=== PATIENT | female | born 1955 | race Caucasian/White ===

== ENCOUNTER → 2017-11-01 | Outpatient (REF) | payer BC ==
[2017-11-01 13:07] LABS: BASO % 0.5 % (0.0-1.0); EOS # 0.2 10^3/uL (0.0-0.50); EOS % 2.9 % (0.0-3.0); HEMATOCRIT 46.4 % (36.0-47.0); HEMOGLOBIN 15.3 g/dl (12.0-16.0); IMMATURE GRANULOCYTE % 0.2 % (0-3.0); LYMPH # 2.4 10^3/uL (1.5-4.5); LYMPH % 38.7 % (24.0-44.0); MEAN CORPUSCULAR HEMOGLOBIN 30.5 pg (27.0-33.0); MEAN CORPUSCULAR VOLUME 92.6 fl (80.0-96.0); MONO # 0.4 10^3/uL (0.0-0.8); MONO % 6.5 % (0.0-5.0); NEUTROPHILS # 3.2 10^3/uL (1.8-7.7); NEUTROPHILS % 51.2 % (36.0-66.0); PLATELET COUNT, AUTOMATED 255 10^3/uL (150-450); RED BLOOD COUNT 5.01 10^6/uL (4.00-5.40); RED CELL DISTRIBUTION WIDTH 13.8 % (11.5-14.5); WHITE BLOOD COUNT 6.2 10^3/uL (4.0-10.0)
[2017-11-01 13:24] LABS: TOTAL 25(OH) VITAMIN D 32.1 NG/ML (30.0-100.0)
[2017-11-01 13:29] LABS: ALBUMIN 4.1 GM/DL (3.2-5.2); ALBUMIN/GLOBULIN RATIO 1.32 (1.00-1.93); ALKALINE PHOSPHATASE 65 U/L (45-117); ALT/SGPT 30 U/L (12-78); ANION GAP 8 MEQ/L (8-16); AST/SGOT 17 U/L (7-37); BILIRUBIN,TOTAL 0.4 MG/DL (0.2-1.0); BLOOD UREA NITROGEN 18 MG/DL (7-18); CALCIUM LEVEL 9.4 MG/DL (8.8-10.2); CARBON DIOXIDE LEVEL 31 MEQ/L (21-32); CHLORIDE LEVEL 103 MEQ/L (98-107); CHOLESTEROL LEVEL 232 MG/DL (<200); CREATININE FOR GFR 0.84 MG/DL (0.55-1.30); FREE T4 0.81 NG/DL (0.76-1.46); GLOMERULAR FILTRATION RATE > 60.0 (>45); GLUCOSE, FASTING 86 MG/DL (70-100); HDL CHOLESTEROL 57 MG/DL (>40); NON-HDL-C 175 MG/DL; POTASSIUM SERUM 3.9 MEQ/L (3.5-5.1); SODIUM LEVEL 142 MEQ/L (136-145); TOTAL PROTEIN 7.2 GM/DL (6.4-8.2); TRIGLYCERIDES LEVEL 235 MG/DL (<150)
== END ==
LOC: M LABDRWAD 12:25
DX: E55.9 Vitamin D deficiency, unspecified (principal); I10 Essential (primary) hypertension
CPT/HCPCS: 84443

== ENCOUNTER → 2020-10-30 | Outpatient (REF) | payer BC ==
[2020-10-30 12:57] LABS: BASO % 0.5 % (0.0-1.0); EOS # 0.2 10^3/uL (0.0-0.5); EOS % 2.6 % (0.0-3.0); HEMATOCRIT 44.9 % (36.0-47.0); HEMOGLOBIN 14.6 g/dl (12.0-15.5); LYMPH % 34.4 % (24.0-44.0); MEAN CORPUSCULAR HEMOGLOBIN 30.9 pg (27.0-33.0); MEAN CORPUSCULAR HGB CONC 32.5 g/dl (32.0-36.5); MEAN CORPUSCULAR VOLUME 95.1 fl (80.0-96.0); MONO # 0.5 10^3/uL (0.0-0.8); MONO % 7.8 % (0.0-5.0); NEUTROPHILS # 3.1 10^3/uL (1.5-8.5); NEUTROPHILS % 54.5 % (36.0-66.0); PLATELET COUNT, AUTOMATED 218 10^3/uL (150-450); RED BLOOD COUNT 4.72 10^6/uL (4.00-5.40); WHITE BLOOD COUNT 5.8 10^3/uL (4.0-10.0)
[2020-10-30 13:32] LABS: ALBUMIN 3.9 GM/DL (3.2-5.2); ALT/SGPT 48 U/L (12-78); BILIRUBIN,TOTAL 0.3 MG/DL (0.2-1.0); BLOOD UREA NITROGEN 18 MG/DL (7-18); CALCIUM LEVEL 9.6 MG/DL (8.8-10.2); CARBON DIOXIDE LEVEL 30 MEQ/L (21-32); CHLORIDE LEVEL 106 MEQ/L (98-107); CHOLESTEROL LEVEL 231 MG/DL (<200); CHOLESTEROL RISK RATIO 4.277 (<5); CREATININE FOR GFR 0.94 MG/DL (0.55-1.30); FREE T4 0.82 NG/DL (0.76-1.46); GLOMERULAR FILTRATION RATE > 60.0 (>45); GLUCOSE, FASTING 106 MG/DL (70-100); HDL CHOLESTEROL 54 MG/DL (>40); LDL CHOLESTEROL 125 MG/DL (<100); NON-HDL-C 177 MG/DL; POTASSIUM SERUM 4.2 MEQ/L (3.5-5.1); SODIUM LEVEL 143 MEQ/L (136-145); TOTAL PROTEIN 7.2 GM/DL (6.4-8.2); TRIGLYCERIDES LEVEL 261 MG/DL (<150)
== END ==
LOC: M LABDRWAD 12:25
PROVIDERS: ATTEND Family Medicine
DX: E78.00 Pure hypercholesterolemia, unspecified (principal); I10 Essential (primary) hypertension; Z13.0 Encounter for screening for diseases of the blood and blood-forming organs and certain disorders involving the immune mechanism; Z13.29 Encounter for screening for other suspected endocrine disorder

== ENCOUNTER → 2020-11-09 | Outpatient (CLI) | payer BC ==
[~2020-11-09] MED LIST: RIZA10TA2 PO; VALS1TAB67 PO; ZOLP10TA2 PO
== END ==
LOC: M LABSMTC 09:24
PROVIDERS: ATTEND Anesthesiology
DX: Z01.812 Encounter for preprocedural laboratory examination (principal); Z20.822 Contact with and (suspected) exposure to COVID-19

== ENCOUNTER 2020-11-14 09:54 | Day surgery (SDC) | payer BC ==
[~2020-11-14] VITALS: Ht 172.7 cm; Wt 86.6 kg
[~2020-11-14 09:54] MED LIST changes: +LIDOCAINE 2% 100MG/5ML SDV (FOR ANES.) As Ordered ONE; +NS 1,000 ML IV ONE; +propofoL 200 MG/20 ML VIAL As Ordered ONE
--- OUTSIDE RECORDS SUMMARY | 2020-11-14 10:00 | CCD | Continuity of Care Document ---
Author Author Linda WHITE D.O. Organization Unknown Address [address] [place] [address] Phone [phone] Care Team Providers Care Tar Heater Name Role Phone Abril White D.O. AUTM Pierre Souza M.D. AUTM [phone] Problems Active Problems Provider Date Adult health examination Abril White D.O. Onset: 0 03/04/2016 Elevated blood-pressure reading without diagnosis of h ypertension Abril Thomas D.O. Onset: 03/04/2016 Obesity Abril White D.O. Onset: 2015 Body mass index [BMI] 33.0-33.9, adult Abril White D.O. Onset: 03/04/2016 Essential hypertension Abril White D.O. Onset: Screening mammography Abril White D.O. Onset: 02/18 Screening for malignant neoplasm of colon Abril viveros D.O. Onset: 03/04/2016 Actinic keratosis Abril White D.O. Onset: 2015 Insomnia Abril White D.O. Onset: 2015 Gynecologic examination Abril White D.O. Onset: Thyroid function tests abnormal Abril White D.O. O nset: 04/17/2016 Benign neoplasm of skin of face Abril White D.O. O nset: 04/17/2016 Impairment level of both eyes Abril White D.O. Ons et: 07/31/2016 Open-angle glaucoma Abril White D.O. Onset: 2015 Snapping thumb syndrome JAMES Hooks Onset: 11/06/19 17 Overweight JAMES Hooks Onset: 11/06/2016 Social History Type Date Description Comments Sex Unknown Tobacco Use Start: Unknown Never Used Smokeless Tobacco ETOH Use Rarely consumes alcohol Tobacco Use Start: Unknown Patient has never smoked Recreational Drug Use Denies Drug Use Smoking Status Reviewed: 10/03/20 Patient has never smoked Exercise Type/Frequency Walks sporadically Sun Exposure Uses sunscreen Seat Belt/Car Seat Always uses seat belt Allergies, Adverse Reactions, Alerts Active Allergies Reaction Severity Comments Date Sulfa Nausea and Vomiting 03/04/20 16 Medications Active Medications SIG Qnty Indications Ordering Provide r Date Valsartan 160mg Tablets 1 by mouth every day 30tabs I10 Abril White D.O. 10/03 Ambien 10mg Tablets take 1 tablet by mouth once nightly at bedtime if needed istop: [id number] 30tabs G47.00 Abril Thomas D.O. 11/05/2017 Doxycycline Hyclate 100mg Tablets 1 by mouth every day 30tabs Abril White D.O. 11/20 Rizatriptan Benzoate 10mg Tablets take 1 tablet by mouth at onset of headache and repeat in 2 hours as needed (4 headaches per month) 8tabs Abril White D.O. 11/19/2016 Vitamin D3 Maximum Strength 5000Unit Capsules take one table by mouth daily Unknown Miralax 17gm Packet one packet mixed with 8 ounces of water daily as needed Unknown Immunizations Description No Information Available Vital Signs Date Vital Result Comment 10/03/2020 1:32pm BP Systolic 124 mmHg BP Diastolic 82 mmHg Height 66.5 inches 5'6.50" Weight 197.00 lb BMI (Body Mass Index) 31.3 kg/m2 Heart Rate 80 /min Respiratory Rate 18 /min Body Temperature 98.3 F O2 % BldC Oximetry 98 % [place] Body Weight 130 lb 11/05/2017 1:46pm BP Systolic 136 mmHg BP Diastolic 80 mmHg Height 66.5 inches 5'6.50" Weight 188.00 lb BMI (Body Mass Index) 29.9 kg/m2 Heart Rate 78 /min Respiratory Rate 16 /min Body Temperature 97.3 F O2 % BldC Oximetry 97 % [place] Body Weight 130 lb Results Test Acquired Date Facility Test Result H/L Range Note Lipid Panel 10/30/2020 [facility] nter [address] [place] [address] [id number] [phone] Triglycerides Level 261 mg/dL High <150 Cholesterol Level 231 mg/dL High <200 HDL Cholesterol 54 mg/dL Normal >40 LDL Cholesterol 125 mg/dL High <100 Non-HDL-C 177 mg/dL Normal Cholesterol Risk Ratio 4.277 Normal <5 Comprehensive Metabolic Profil 10/30/[address] [address] [phone] Glucose, Fasting 106 mg/dL High 70-100 Blood Urea Nitrogen 18 mg/dL Normal 7-18 Creatinine For GFR 0.94 mg/dL Normal 0.55-1.30 Glomerular Filtration Rate > 60.0 Normal >45 1 Sodium Level 143 mEq/L Normal 136-145 Potassium Serum 4.2 mEq/L Normal 3.5-5.1 Chloride Level 106 mEq/L Normal 98-107 Carbon Dioxide Level 30 mEq/L Normal 21-32 Anion Gap 7 mEq/L Low 8-16 Calcium Level 9.6 mg/dL Normal 8.8-10.2 Ast/Sgot 20 U/L Normal 7-37 Alt/SGPT 48 U/L Normal 12-78 Alkaline Phosphatase 68 U/L Normal 45-117 Bilirubin,Total 0.3 mg/dL Normal 0.2-1.0 Total Protein 7.2 GM/DL Normal 6.4-8.2 Albumin 3.9 GM/DL Normal 3.2-5.2 Albumin/Globulin Ratio 1.2 Normal 1.2-2.2 CBC With Differential 10/30/[address] [address] [phone] White Blood Count 5.8 10 Normal 4.0-10.0 Red Blood Count 4.72 10 Normal 4.00-5.40 Hemoglobin 14.6 g/dL Normal 12.0-15.5 Hematocrit 44.9 % Normal 36.0-47.0 Mean Corpuscular Volume 95.1 fl Normal 80.0-96.0 Mean Corpuscular Hemoglobin 30.9 pg Normal 27.0-33.0 Mean Corpuscular HGB Conc 32.5 g/dL Normal 32.0-36.5 Red Cell Distribution Width 13.8 % Normal 11.5-14.5 Platelet Count, Automated 218 10 Normal 150-450 Neutrophils % 54.5 % Normal 36.0-66.0 Lymph % 34.4 % Normal 24.0-44.0 [place] % 7.8 % High 0.0-5.0 Eos % 2.6 % Normal 0.0-3.0 Baso % 0.5 % Normal 0.0-1.0 Immature Granulocyte % 0.2 % Normal 0-3.0 Nucleated Red Blood Cell % 0.0 % Normal 0-0 Neutrophils # 3.1 10 Normal 1.5-8.5 Lymph # 2.0 10 Normal 1.5-5.0 [place] # 0.5 10 Normal 0.0-0.8 Eos # 0.2 10 Normal 0.0-0.5 Baso # 0.0 10 Normal 0.0-0.2 FT4&TSH Panel 10/30/2020 [facility] nter [address] [place] [address] [id number] [phone] Thyroid Stimulating Hormone 2.320 uIU/ML Normal 0. 358-3.740 Free T4 0.82 ng/dL Normal 0.76-1.46 1 Units are mL/min/1.73 m2 Chronic Kidney Disease Staging per NKF: Stage I & II GFR >=60 Normal to Mildly Decreased Stage III GFR 30-59 Moderately Decreased Stage IV GFR 15-29 Severely Decreased Stage V GFR <15 Very Little GFR Left ESRD GFR <15 on [employer] Procedures Date Code Description Status 04/17/2016 [id number] Mammogram Completed Medical Devices Description No Information Available Encounters Type Date Location Provider Dx Diagnosis Office Visit 10/03/2020 1:30p Family Medicine [facility] Clement White D.O. Z00.00 Encntr for general adult med ical exam w/o abnormal findings E78.00 Pure hypercholesterolemia, u nspecified Z88.2 Allergy status to sulfonamid es I10 Essential (primary) hyperten oni Z79.899 Other detention (current) dr stephanie therapy E66.9 Obesity, unspecified Z13.0 Encntr screen for dis of the bld/bld-form org/immun mechnsm Z13.29 Encounter for screening for oth suspected endocrine disorder Z12.31 Encntr screen mammogram for malignant neoplasm of breast Z12.11 Encounter for screening for malignant neoplasm of colon Z68.31 Body mass index [BMI] 31.0-3 1.9, adult Assessments Date Code Description Provider 10/03/2020 Z00.00 Encounter for genera l adult medical examination without abnormal findings Sotero Diaz.OLondon 10/03/2020 E78.00 Pure hypercholesterolemia, unspe cified Sotero Diaz.OLondon 10/03/2020 Z88.2 Allergy status to sulfonamides Sotero Butler.OLondon 10/03/2020 I10 Essential (primary) hypertension Abril White D.OLondon 10/03/2020 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 Abril White D.OLondon 10/03/2020 E66.9 Obesity, unspecified Abril Sotomayor D.OLondon 10/03/2020 Z13.0 Encounter for screen ing for diseases of the blood and blood- forming organs and certain disorders involving the immune mechanism Sotero Diaz.OLondon 10/03/2020 Z13.29 Encounter for screen ing for other suspected endocrine disorder Rafy DiazOLondon 10/03/2020 Z12.31 Encounter for screen ing mammogram for malignant neoplasm of breast Sotero Diaz.OLondon 10/03/2020 Z12.11 Encounter for screening for abbi gnant neoplasm of colon Sotero Diaz.OLondon 10/03/2020 Z68.31 Body mass index [BMI] 31.0-31.9, adult Abril White D.O. Plan of Treatment Future Appointment(s):* 11/06/2020 1:30 pm - Abril White D.O. at [facility] Functional Status Description No Information Available Mental Status Description No Information Available Referrals Refer to Reason for Referral Status Appt Date Pierre Souza M.D. This is a 65 year old female who is due for screening colonoscopy. Please evaluate and treat. Patient Notified 10/18/[address] [id number] [phone]
--- OUTSIDE RECORDS SUMMARY | 2020-11-14 10:00 | CCD | Continuity of Care Document ---
Author Author Linda WHITE D.O. Organization Unknown Address [address] [place] [address] Phone [phone] Care Team Providers Care Supervisor Phosphatic Fertilizer Name Role Phone Abril White D.O. AUTM [phone] Pierre Souza M.D. AUTM [phone] Problems Active Problems Provider Date Adult health [...] 160mg Tablets 1 by mouth every day 90tabs I10 Abril White D.O. 10/03 Ambien 10mg Tablets take 1 tablet by mouth once nightly at bedtime if needed istop: [id number] 30tabs G47.00 Abril Thomas D.O. 11/05/2017 Doxycycline Hyclate 100mg Tablets 1 by mouth every day prn 30tabs Rafy DiazO. 0 11/20/2016 Rizatriptan Benzoate 10mg Tablets take 1 tablet [...] Available Vital Signs Date Vital Result Comment 11/06/2020 1:30pm BP Systolic 128 mmHg BP Diastolic 82 mmHg Height 66.5 inches 5'6.50" Weight 195.12 lb BMI (Body Mass Index) 31.0 kg/m2 Heart Rate 88 /min Respiratory Rate 14 /min Body Temperature 98.4 F O2 % BldC Oximetry 97 % [place] Body Weight 130 lb 10/03/2020 1:32pm BP Systolic 124 mmHg BP Diastolic 82 mmHg Height 66.5 inches 5'6.50" Weight 197.00 lb BMI (Body Mass Index) 31.3 kg/m2 Heart Rate 80 /min Respiratory Rate 18 /min Body Temperature 98.3 F O2 % BldC Oximetry 98 % [place] Body Weight 130 lb Results Test Acquired Date Facility Test Result H/L Range Note Lipid Panel 10/30/2020 [facility] nter [address] [place] [address] [phone] Triglycerides Level 261 mg/dL High <150 Cholesterol Level 231 mg/dL High <200 HDL Cholesterol 54 mg/dL Normal >40 LDL Cholesterol 125 mg/dL High <100 Non-HDL-C 177 mg/dL Normal Cholesterol Risk Ratio 4.277 Normal <5 Comprehensive Metabolic Profil 10/30/[address] [address] [phone] Glucose, Fasting 106 mg/dL High 70-100 Blood [...] 1.2 Normal 1.2-2.2 CBC With Differential 10/30/[address] [address] [phone] White Blood Count 5.8 10 Normal 4.0-10.0 [...] 36.0-66.0 Lymph % 34.4 % Normal 24.0-44.0 Rich % 7.8 % High 0.0-5.0 Eos % 2.6 % Normal 0.0-3.0 Baso % 0.5 % Normal 0.0-1.0 Immature Granulocyte % 0.2 % Normal 0-3.0 Nucleated Red Blood Cell % 0.0 % Normal 0-0 Neutrophils # 3.1 10 Normal 1.5-8.5 Lymph # 2.0 10 Normal 1.5-5.0 Rich # 0.5 10 Normal 0.0-0.8 Eos # 0.2 10 Normal 0.0-0.5 Baso # 0.0 10 Normal 0.0-0.2 FT4&TSH Panel 10/30/2020 [facility] nter [address] [place], [place] [id number] [phone] Thyroid Stimulating Hormone 2.320 uIU/ML Normal 0. 358-3.740 Free T4 0.82 ng/dL Normal 0.76-1.46 1 Units are mL/min/1.73 m2 Chronic Kidney Disease Staging per NKF: Stage I & II GFR >=60 Normal to Mildly Decreased Stage III GFR 30-59 Moderately Decreased Stage IV GFR 15-29 Severely Decreased Stage V GFR <15 Very Little GFR Left ESRD GFR <15 on [employer] Procedures Date Code Description Status 04/17/2016 [id number] Mammogram Completed Medical Devices Description No Information Available Encounters Type Date Location Provider Dx Diagnosis Office Visit 11/06/2020 1:30p [facility] [place] Abril Zenon-Martha, D.O. 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 Z00.00 Encntr for general adult med ical exam w/o abnormal findings E78.00 Pure hypercholesterolemia, u nspecified Z88.2 Allergy status to sulfonamid es I10 Essential (primary) hyperten oni Z79.899 Other fdc (current) dr brown therapy E66.9 Obesity, unspecified Z13.0 Encntr screen for dis of the bld/bld-form org/immun mechnsm Z13.29 Encounter for screening for oth suspected endocrine disorder Z12.31 Encntr screen mammogram for malignant neoplasm of breast Z12.11 Encounter for screening for malignant neoplasm of colon Z68.31 Body mass index [BMI] 31.0-3 1.9, adult Assessments Date Code Description Provider 11/06/2020 I10 Essential (primary) hypertension Abril White D.O. 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 11/06/2020 Z88.2 Allergy status to sulfonamides Sotero Butler.OLondon 10/03/2020 Z00.00 Encounter for [facility] l adult medical examination without abnormal findings Abril White D.O. 10/03/2020 E78.00 Pure hypercholesterolemia, unspe cified Abril White D.O. 10/03/2020 Z88.2 Allergy status to sulfonamides Ambika White D.O. 10/03/2020 I10 Essential (primary) hypertension Abril White D.O. 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 10/03/2020 E66.9 Obesity, unspecified Abril Sotero Quinn.O. 10/03/2020 Z13.0 Encounter for screen ing for diseases of the blood and blood- forming organs and certain disorders involving the immune mechanism Sotero Diaz.O. 10/03/2020 Z13.29 Encounter for screen ing for other suspected endocrine disorder Rafy DiazO. 10/03/2020 Z12.31 Encounter for screen ing mammogram for malignant neoplasm of breast Sotero Diaz.O. 10/03/2020 Z12.11 Encounter for screening for abbi gnant neoplasm of colon Sotero Diaz.O. 10/03/2020 Z68.31 Body mass index [BMI] 31.0-31.9, adult Abril White D.O. Plan of Treatment Future Appointment(s):* 05/06/2021 1:40 pm - JAMES Hooks at [facility] Functional Status Description No Information Available Mental Status Description No Information Available Referrals Refer to Reason for Referral Status Appt Date Pierre Souza M.D. This is a 65 year old female who is due for screening colonoscopy. Please evaluate and treat. Patient Notified 10/18/[address] [address] [phone]
--- OUTSIDE RECORDS SUMMARY | 2020-11-14 10:01 | CCD | Continuity of Care Document ---
Author Linda Deshpande [facility] Organization Unknown Address [address] [place] [address], [address] [place] [address] Phone [phone] Care Team Providers Care Improvement Lead Name Role Phone Abril White D.O. AUTM [phone] Pierre Souza M.D. AUTM [phone] Problems Active Problems Provider Date Essential hypertension Uli Alvarado NP Onset: 10/14/2020 Social History Type Date Description Comments Sex Unknown ETOH Use Denies alcohol use Tobacco Use Start: Unknown Denies Smoking Recreational Drug Use Denies Drug Use Allergies, Adverse Reactions, Alerts Active Allergies Reaction Severity Comments Date Sulfa Nausea 10/14/2020 Lisinopril Cough 10/14/2020 Medications Active Medications SIG Qnty Indications Ordering Provide r Date Valsartan 160mg Tablets every day Unknown Multi Vitamin Tablets 1 by mouth every day Unknown Vitamin D 25mcg (1000 Ut) Tablets take 1 tab by mouth daily Unknown Vitamin C 1000mg Tablets 1 by mouth every day Unknown Eq Stool Softener 100mg Capsules by mouth every day Unknown Motrin Ib 200mg Capsules 2 as needed Unknown Immunizations Description No Information Available Vital Signs Date Vital Result Comment 10/18/2020 8:29am BP Systolic 126 mmHg BP Diastolic 88 mmHg Height 68 inches 5'8" Weight 198.25 lb BMI (Body Mass Index) 30.1 kg/m2 [place] Body Weight 140 lb Weight 89.926 kg BSA (Body Surface Area) 2.04 m2 Results Description No Information Available Procedures Description No Information Available Medical Devices Description No Information Available Encounters Description No Information Available Assessments Description No Information Available Plan of Treatment No Information Available Functional Status Description No Information Available Mental Status Description No Information Available Referrals Refer to Reason for Referral Status Appt Date Pierre Souza M.D. COLONOSCOPY Scheduled 10/18/2020 [facility] Surgery [address] [id number] [phone]
--- OUTSIDE RECORDS SUMMARY | 2020-11-14 10:01 | CCD | Continuity of Care Document ---
Author Author Linda WHITE D.O. Organization Unknown Address [address] [place] [address] Phone [phone] Care Team Providers Care Chief Writer Name Role Phone Abril White D.O. AUTM [phone] Problems Active Problems Provider Date Adult health [...] White D.O. Onset: Thyroid function tests abnormal Karson Diaz nset: 04/17/2016 Benign neoplasm of skin of face Karson Diaz nset: 04/17/2016 Impairment level of both eyes [...] once nightly at bedtime if needed istop: [id number] 30tabs G47.00 Abril Thomas D.O. 11/05/2017 Doxycycline [...] F O2 % BldC Oximetry 98 % [place] Body Weight 130 lb 11/05/2017 1:46pm BP Systolic 136 mmHg BP Diastolic 80 mmHg Height 66.5 inches 5'6.50" Weight 188.00 lb BMI (Body Mass Index) 29.9 kg/m2 Heart Rate 78 /min Respiratory Rate 16 /min Body Temperature 97.3 F O2 % BldC Oximetry 97 % [place] Body Weight 130 lb Results Description No Information Available Procedures Date Code Description Status 04/17/2016 [id number] Mammogram Completed Medical Devices Description No Information Available Encounters Type Date Location Provider Dx Diagnosis Office Visit 10/03/2020 1:30p Family Medicine [facility] Sotero Diaz.O. Z00.00 Encntr for general adult med ical exam w/o abnormal findings E78.00 Pure hypercholesterolemia, u nspecified Z88.2 Allergy status to sulfonamid es I10 Essential (primary) hyperten oni Z79.899 Other [place] (current) dr stephanie phelps E66.9 Obesity, unspecified Z13.0 Encntr screen for [...] l adult medical examination without abnormal findings Rafy DiazOLondon 10/03/2020 E78.00 Pure hypercholesterolemia, unspe cified Rafy DiazOLondon 10/03/2020 Z88.2 Allergy status to sulfonamides Sotero Butler.OLondon 10/03/2020 I10 Essential (primary) hypertension Sotero Diaz.OLondon 10/03/2020 Z79.899 Other intermediate (current) drug t herapy Sotero Diaz.OLondon 10/03/2020 E66.9 Obesity, unspecified Rafy JohnsonOLondon 10/03/2020 Z13.0 Encounter for screen ing for diseases of the blood and blood- forming organs and certain disorders involving the immune mechanism Abril White D.O. 10/03/2020 Z13.29 Encounter for screen ing for other suspected endocrine disorder Abril White D.O. 10/03/2020 Z12.31 Encounter for screen ing mammogram for malignant neoplasm of breast Abril White D.O. 10/03/2020 Z12.11 Encounter for screening for abbi gnant neoplasm of colon Abril White D.O. 10/03/2020 Z68.31 Body mass index [BMI] 31.0-31.9, adult Abril White D.O. Plan of Treatment Future Appointment(s):* 11/06/2020 1:30 pm - Abril White D.O. at [facility] Functional Status Description No Information Available Mental Status Description No Information Available Referrals Refer to Reason for Referral Status Appt Date Pierre Souza M.D. This is a 65 year old female who is due for screening colonoscopy. Please evaluate and treat. Created [address] [place] [address] [phone]
--- OUTSIDE RECORDS SUMMARY | 2020-11-14 10:01 | CCD ---
Author Author [facility] Organization [facility] Address Unknown Phone Unavailable Care Team Providers Care Language Pathologist Name Role Phone MARLA-GUIDO, LEONID DO Unavailable Unavailable MARLA-GUIDO, LEONID DO Unavailable Unavailable MARLA-GUIDO, LEONID DO Unavailable Unavailable MARLA-GUIDO, LEONID DO Unavailable Unavailable MARLA-GUIDO, LEONID DO Unavailable Unavailable MARLA-GUIDO, LEONID DO Unavailable Unavailable MARLA-GUIDO, LEONID DO Unavailable Unavailable MARLA-GUIDO, LEONID DO Unavailable Unavailable MARLA-GUIDO, LEONID DO Unavailable Unavailable MARLA-GUIDO, LEONID DO Unavailable Unavailable MARLA-GUIDO, LEONID DO Unavailable Unavailable MARLA-GUIDO, LEONID DO Unavailable Unavailable MARLA-GUIDO, LEONID DO Unavailable Unavailable MARLA-GUIDO, LEONID DO Unavailable Unavailable MARLA-GUIDO, LEONID DO Unavailable Unavailable MARLA-GUIDO, LEONID DO Unavailable Unavailable MARLA-GUIDO, LEONID DO Unavailable Unavailable MALRA-GUIDO, LEONID DO Unavailable Unavailable MARLA-GUIDO, LEONID DO Unavailable Unavailable MARLA-GUIDO, LEONID DO Unavailable Unavailable MARLA-GUIDO, LEONID DO Unavailable Unavailable MARLA-GUIDO, LEONID DO Unavailable Unavailable MARLA-GUIDO, LEONID DO Unavailable Unavailable MARLA-GUIDO, LEONID DO Unavailable Unavailable MARLA-GUIDO, LEONID DO Unavailable Unavailable MARLA-GUIDO, LEONID DO Unavailable Unavailable MARLA-GUIDO, LEONID DO Unavailable Unavailable MARLA-GUIDO, LEONID DO Unavailable Unavailable MARLA-GUIDO, LEONID DO Unavailable Unavailable MARLA-GUIDO, LEONID DO Unavailable Unavailable MARLA-GUIDO, LEONID DO Unavailable Unavailable MARLA-GUIDO, LEONID DO Unavailable Unavailable MARLA-GUIDO, LEONID DO Unavailable Unavailable MARLA-GUIDO, LEONID DO Unavailable Unavailable MARLA-GUIDO, LEONID DO Unavailable Unavailable MARLA-GUIDO, LEONID DO Unavailable Unavailable MARLA-GUIDO, LEONID DO Unavailable Unavailable MARLA-GUIDO, LEONID DO Unavailable Unavailable MARLA-GUIDO, LEONID DO Unavailable Unavailable MARLA-GUIDO, LEONID DO Unavailable Unavailable MARLA-GUIDO, LEONID DO Unavailable Unavailable MARLA-GUIDO, LEONID DO Unavailable Unavailable MARLA-GUIDO, LEONID DO Unavailable Unavailable MARLA-GUIDO, LEONID DO Unavailable Unavailable MARLA-GUIDO, LEONID DO Unavailable Unavailable MARLA-GUIDO, LEONID DO Unavailable Unavailable MARLA-GUIDO, LEONID DO Unavailable Unavailable MARLA-GUIDO, LEONID DO Unavailable Unavailable MARLA-GUIDO, LEONID DO Unavailable Unavailable MARLA-GUIDO, LEONID DO Unavailable Unavailable MARLA-GUIDO, LEONID DO Unavailable Unavailable MARLA-GUIDO, LEONID DO Unavailable Unavailable MARLA-GUIDO, LEONID DO Unavailable Unavailable MARLA-GUIDO, LEONID DO Unavailable Unavailable MARLA-GUIDO, LEONID DO Unavailable Unavailable MARLA-GUIDO, LEONID DO Unavailable Unavailable MARLA-GUIDO, LEONID DO Unavailable Unavailable MARLA-GUIDO, LEONID DO Unavailable Unavailable MARLA-GUIDO, LEONID DO Unavailable Unavailable MARLA-GUIDO, LEONID DO Unavailable Unavailable MARLA-GUIDO, LEONID DO Unavailable Unavailable MARLA-GUIDO, LEONID DO Unavailable Unavailable MARLA-GUIDO, LEONID DO Unavailable Unavailable MARLA-GUIDO, LEONID DO Unavailable Unavailable MARLA-GUIDO, LEONID DO Unavailable Unavailable MARLA-GUIDO, LEONID DO Unavailable Unavailable MARLA-GUIDO, LEONID DO Unavailable Unavailable MARLA-GUIDO, LEONID DO Unavailable Unavailable MARLA-GUIDO, LEONID DO Unavailable Unavailable MARLA-GUIDO, LEONID DO Unavailable Unavailable MARLA-GUIDO, LEONID DO Unavailable Unavailable MARLA-GUIDO, LEONID DO Unavailable Unavailable MARLA-GUIDO, LEONID DO Unavailable Unavailable MARLA-GUIDO, LEONID DO Unavailable Unavailable MARLA-GUIDO, LEONID DO Unavailable Unavailable MARLA-GUIDO, LEONID DO Unavailable Unavailable MARLA-GUIDO, LEONID DO Unavailable Unavailable MARLA-GUIDO, LEONID DO Unavailable Unavailable MARLA-GUIDO, LEONID DO Unavailable Unavailable MARLA-GUIDO, LEONID DO Unavailable Unavailable MARLA-GUIDO, LEONID DO Unavailable Unavailable MARLA-GUIDO, LEONID DO Unavailable Unavailable Re-disclosure Warning The records that you are about to access may contain information from federally-assisted alcohol or drug abuse programs. If such information is present, then the following federally mandated warning applies: This information has been disclosed to you from records protected by federal confidentiality rules (42 CFR part 2). The federal rules prohibit you from making any further disclosure of this information unless further disclosure is expressly permitted by the written consent of the person to whom it pertains or as otherwise permitted by 42 CFR part 2. A general authorization for the release of medical or other information is NOT sufficient for this purpose. The Federal rules restrict any use of the information to criminally investigate or prosecute any alcohol or drug abuse patient.The records that you are about to access may contain highly sensitive health information, the redisclosure of which is protected by Article 27-F of the [facility] Public Health law. If you continue you may have access to information: Regarding HIV / AIDS; Provided by facilities licensed or operated by the [facility] Office of Mental Health; or Provided by the [facility] Office for People With Developmental Disabilities. If such information is present, then the following [facility] mandated warning applies: This information has been disclosed to you from confidential records which are protected by state law. State law prohibits you from making any further disclosure of this information without the specific written consent of the person to whom it pertains, or as otherwise permitted by law. Any unauthorized further disclosure in violation of state law may result in a fine or assisted sentence or both. A general authorization for the release of medical or other information is NOT sufficient authorization for further disc losure. Family History Family Member Name Family Member Gender Family Member Status Date o f Status Description Data Source(s) Unknown Male Problem [facility] ([facility]) Unknown Female Problem [facility] ([facility]) Unknown Female Problem [facility] ([facility]) Unknown Unknown Problem [facility] ([facility]) Encounters Encounter Providers Location Date Indications Data Source(s ) Outpatient Attender: LEONID CHRISTENSEN [facility] 11/06/2020 12:30:00 PM EST [facility] ([facility]) Outpatient Attender: LEONID CHRISTENSEN [facility] 10/03/2020 12:30:00 PM EST [facility] ([facility]) Immunizations Vaccine Date Status Description Data Source(s) INFLUENZA VIRUS VACCINE QUADRIVAL [id number](6 MOS AND UP)/PF 08/12/2020 12:00:00 AM EST completed [facility] Medications Medication Brand Name Start Date Product Form Dose Route Admi nistrative Instructions Pharmacy Instructions Status Indications Reaction Description Data Source(s) 160 mg 11/07/2020 12:00:00 AM EST tablet 90 TAKE ONE TABLET BY MOUTH ONCE DAILY TAKE ONE TABLET BY MOUTH ONCE DAILY SOLD: 11/08/2020 [facility] 10 mg 11/07/2020 12:00:00 AM EST tablet 8 TAKE ONE TABLET BY MOUTH AT ONSET OF HEADACHE AND REPEAT IN 2 HOURS NEEDED (UP TO 4 HEADACHES PER MONTH) TAKE ONE TABLET BY MOUTH AT ONSET OF HEADACHE AND REPEAT IN 2 HOURS NEEDED (UP TO 4 HEADACHES PER MONTH) SOLD: 11/08/2020 [facility] 17.5-3.13-1.6 gram 11/06/2020 12:00:00 AM EST recon soln [address] INSTRUCTIONS TAKE PER DR INSTRUCTIONS SOLD: 11/08/2020 [facility] 10 mg 10/08/2020 12:00:00 AM EST tablet 30 TAKE ONE TABLET BY MOUTH AT BEDTIME IF NEEDED MAXIMUM DAILY DOSE = 1 TAKE ONE TABLET BY MOUTH AT BEDTIME IF NEEDED MAXIMUM DAILY DOSE = 1 SOLD: 10/10/2020 [facility] 10 mg 10/08/2020 12:00:00 AM EST tablet 30 TAKE ONE TABLET BY MOUTH AT BEDTIME IF NEEDED MAXIMUM DAILY DOSE = 1 TAKE ONE TABLET BY MOUTH AT BEDTIME IF NEEDED MAXIMUM DAILY DOSE = 1 SOLD: 11/11/2020 [facility] 160 mg 10/04/2020 12:00:00 AM EST tablet 30 TAKE ONE TABLET BY MOUTH EVERY DAY TAKE ONE TABLET BY MOUTH EVERY DAY SOLD: 10/07/2020 [facility] valsartan 160 MG Oral Tablet Valsartan 10/03/2020 12:00:00 AM EST ORAL active [facility] ([facility]) 10 mg 06/12/2020 12:00:00 AM EDT tablet 30 TAKE ONE TABLET BY MOUTH AT BEDTIME NEEDED, MAXIMUM DAILY DOSE = 1 TABLET TAKE ONE TABLET BY MOUTH AT BEDTIME NEEDED, MAXIMUM DAILY DOSE = 1 TABLET SOLD: 06/15/2020 [facility] 10 mg 06/12/2020 12:00:00 AM EDT tablet 30 TAKE ONE TABLET BY MOUTH AT BEDTIME NEEDED, MAXIMUM DAILY DOSE = 1 TABLET TAKE ONE TABLET BY MOUTH AT BEDTIME NEEDED, MAXIMUM DAILY DOSE = 1 TABLET SOLD: 09/01/2020 [facility] 240 mg 06/11/2020 12:00:00 AM EDT capsule,ext rel. pellet s 24 hr 90 TAKE ONE CAPSULE BY MOUTH EVERY DAY TAKE ONE CAPSULE BY MOUTH EVERY DAY SOLD: 09/10/2020 [facility] 240 mg 06/11/2020 12:00:00 AM EDT capsule,ext rel. pellet s 24 hr 90 TAKE ONE CAPSULE BY MOUTH EVERY DAY TAKE ONE CAPSULE BY MOUTH EVERY DAY SOLD: 06/12/2020 [facility] doxycycline hyclate 100 MG Oral Tablet DOXYCYCLINE HYCLATE 0 06/10/2020 12:00:00 AM EDT tablet 30 TAKE ONE TABLET BY MOUTH AMINATA DAY TAKE ONE TABLET BY MOUTH EVERY DAY SOLD: 09/01/2020 [facility] doxycycline hyclate 100 MG Oral Tablet DOXYCYCLINE HYCLATE 0 06/10/2020 12:00:00 AM EDT tablet 30 TAKE ONE TABLET BY MOUTH AMINATA RY DAY TAKE ONE TABLET BY MOUTH EVERY DAY SOLD: 06/12/2020 [facility] 10 mg 06/10/2020 12:00:00 AM EDT tablet 8 TAKE 1 TABLET BY MOUTH AT ONSET OF HEADACHE AND REPEAT IN 2 HOURS NEEDED (4 HEADACHES PER MONTH) TAKE 1 TABLET BY MOUTH AT ONSET OF HEADACHE AND REPEAT IN 2 HOURS NEEDED (4 HEADACHES PER MONTH) SOLD: 06/12/2020 [facility] 10 mg 05/07/2020 12:00:00 AM EDT tablet 8 TAKE 1 TABLET BY MOUTH AT ONSET OF HEADACHE AND REPEAT IN 2 HOURS NEEDED (4 HEADACHES A MONTH) TAKE 1 TABLET BY MOUTH AT ONSET OF HEADACHE AND REPEAT IN 2 HOURS NEEDED (4 HEADACHES A MONTH) SOLD: 05/09/2020 [facility] 10 mg 05/07/2020 12:00:00 AM EDT tablet 30 TAKE ONE TABLET BY MOUTH AT BEDTIME IF NEEDED MAXIMUM DAILY DOSE = 1 TABLET TAKE ONE TABLET BY MOUTH AT BEDTIME IF NEEDED MAXIMUM DAILY DOSE = 1 TABLET SOLD: 05/09/2020 [facility] 10 mg 05/07/2020 12:00:00 AM EDT tablet 8 TAKE 1 TABLET BY MOUTH AT ONSET OF HEADACHE AND REPEAT IN 2 HOURS NEEDED (4 HEADACHES A MONTH) TAKE 1 TABLET BY MOUTH AT ONSET OF HEADACHE AND REPEAT IN 2 HOURS NEEDED (4 HEADACHES A MONTH) SOLD: 09/01/2020 [facility] 240 mg 12/06/2019 12:00:00 AM EDT capsule,ext rel. pellet s 24 hr 90 TAKE ONE CAPSULE BY MOUTH EVERY DAY TAKE ONE CAPSULE BY MOUTH EVERY DAY SOLD: 03/30/2020 [facility] 240 mg 12/06/2019 12:00:00 AM EDT capsule,ext rel. pellet s 24 hr 90 TAKE ONE CAPSULE BY MOUTH EVERY DAY TAKE ONE CAPSULE BY MOUTH EVERY DAY SOLD: 12/07/2019 [facility] 10 mg 11/20/2019 12:00:00 AM EST tablet 8 TAKE 1 TABLET BY MOUTH AT ONSET OF HEADACHE AND REPEAT IN 2 HOURS NEEDED (4 HEADACHES PER MONTH) TAKE 1 TABLET BY MOUTH AT ONSET OF HEADACHE AND REPEAT IN 2 HOURS NEEDED (4 HEADACHES PER MONTH) SOLD: 12/22/2019 [facility] 10 mg 11/20/2019 12:00:00 AM EST tablet 8 TAKE 1 TABLET BY MOUTH AT ONSET OF HEADACHE AND REPEAT IN 2 HOURS NEEDED (4 HEADACHES PER MONTH) TAKE 1 TABLET BY MOUTH AT ONSET OF HEADACHE AND REPEAT IN 2 HOURS NEEDED (4 HEADACHES PER MONTH) SOLD: 01/19/2020 [facility] 10 mg 11/20/2019 12:00:00 AM EST tablet 8 TAKE 1 TABLET BY MOUTH AT ONSET OF HEADACHE AND REPEAT IN 2 HOURS NEEDED (4 HEADACHES PER MONTH) TAKE 1 TABLET BY MOUTH AT ONSET OF HEADACHE AND REPEAT IN 2 HOURS NEEDED (4 HEADACHES PER MONTH) SOLD: 02/19/2020 [facility] 10 mg 11/20/2019 12:00:00 AM EST tablet 8 TAKE 1 TABLET BY MOUTH AT ONSET OF HEADACHE AND REPEAT IN 2 HOURS NEEDED (4 HEADACHES PER MONTH) TAKE 1 TABLET BY MOUTH AT ONSET OF HEADACHE AND REPEAT IN 2 HOURS NEEDED (4 HEADACHES PER MONTH) SOLD: 11/23/2019 [facility] 10 mg 06/08/2019 12:00:00 AM EDT tablet 30 TAKE ONE TABLET BY MOUTH AT BEDTIME IF NEEDED MAXIMUM DAILY DOSE = 1 TABLET TAKE ONE TABLET BY MOUTH AT BEDTIME IF NEEDED MAXIMUM DAILY DOSE = 1 TABLET SOLD: 11/30/2019 [facility] 10 mg 06/08/2019 12:00:00 AM EDT tablet 30 TAKE ONE TABLET BY MOUTH AT BEDTIME IF NEEDED MAXIMUM DAILY DOSE = 1 TABLET TAKE ONE TABLET BY MOUTH AT BEDTIME IF NEEDED MAXIMUM DAILY DOSE = 1 TABLET SOLD: 10/25/2019 [facility] 10 mg 05/19/2019 12:00:00 AM EDT tablet 8 TAKE 1 TABLET BY MOUTH AT ONSET OF HEADACHE AND REPEAT IN 2 HOURS NEEDED (4 HEADACHES PER MONTH) TAKE 1 TABLET BY MOUTH AT ONSET OF HEADACHE AND REPEAT IN 2 HOURS NEEDED (4 HEADACHES PER MONTH) SOLD: 10/25/2019 [facility] 100 mg 03/06/2019 12:00:00 AM EDT tablet 30 TAKE ONE TABLET BY MOUTH EVERY DAY TAKE ONE TABLET BY MOUTH EVERY DAY SOLD: 12/07/2019 [facility] Insurance Providers Payer name Policy type / Coverage type Policy ID Covered constitution party ID Covered constitution party's relationship to lisa Policy Lisa Plan Information [employer] [place] 302/307 [id number] SP [id number] [employer] [place] 306/806 [id number] SP [id number] [employer] [place] 302/307 [id number] SP [id number] [employer] [place] 306/806 [id number] SP [id number] [facility] O [id number] S [id number] [facility] O [id number] S [id number] [facility] U/W Commercial [id number] Self [id number] [facility] U/W Commercial [id number] Self [id number] [facility] Health Maintenance Organization (HMO) [id number] Self [id number] [employer] [place] CHOICE PLUS [id number] SP [id number] [employer] U/W Commercial [id number] Self [id number] [employer] U/W Commercial [id number] Self [id number] [facility] Health Maintenance Organization (HMO) [id number] Self [id number] [facility] (pr) Commercial [id number] Self [id number] [employer] U/W Commercial Self [employer] U/W Commercial Self BC[employer] Commercial Self [employer] B [id number] S VYA [id number] [employer] B [id number] S YOU [id number] BS/W/Id#Prefix/W ALL #'S Commercial Self [id number] Problems, Conditions, and Diagnoses Code Display Name Description Problem Type Effective Dates Data Source(s) [id number] Essential hypertension Essential hypertension Problem 10/14/2020 12:00:00 AM EST [facility] ([facility] ) Results ID Date Data Source [id number] 11/09/2020 09:00:00 AM EST [facility] Name Value Range Interpretation Code Description Data Shannan rce(s) Supporting Document(s) SARS coronavirus 2 RNA Not Detected [facility] [place] This lab was ordered by [facility] and reported by [facility]. ID Date Data Source [id number] 10/30/2020 09:45:00 AM EST [facility] ([facility]) Name Value Range Interpretation Code Description Data Shannan rce(s) Supporting Document(s) Thyroid Stimulating Hormone 2.320 uIU/ML 0.358-3.740 Norm al (applies to non- numeric results) [facility] ([facility]) Free T4 0.82 ng/dL 0.76-1.46 Normal (applies to non-numeric resul ts) [facility] ([facility]) ID Date Data Source [id number] 10/30/2020 09:45:00 AM EST [facility] ([facility]) Name Value Range Interpretation Code Description Data Shannan rce(s) Supporting Document(s) White Blood Count 5.8 10 4.0-10.0 Normal (applies to non-numeri c results) [facility] ([facility]) Red Blood Count 4.72 10 4.00-5.40 Normal (applies to non-numeric results) [facility] ([facility]) Hematocrit 44.9 % 36.0-47.0 Normal (applies to non-numeric resul ts) [facility] ([facility]) Hemoglobin 14.6 g/dL 12.0-15.5 Normal (applies to non-numeric resul ts) [facility] ([facility]) Mean Corpuscular Hemoglobin 30.9 pg 27.0-33.0 Norm al (applies to non-numeric results) [facility] ([facility]) Mean Corpuscular Volume 95.1 fl 80.0-96.0 Normal ( applies to non-numeric results) [facility] ([facility]) Red Cell Distribution Width 13.8 % 11.5-14.5 Norm al (applies to non-numeric results) [facility] ([facility]) Mean Corpuscular HGB Conc 32.5 g/dL 32.0-36.5 Normal (applies to non-numeric results) [facility] ([facility]) Platelet Count, Automated 218 10 150-450 Normal (applies to non-numeric results) [facility] ([facility]) Neutrophils % 54.5 % 36.0-66.0 Normal (applies to non-numeric re sults) [facility] ([facility]) Lymph % 34.4 % 24.0-44.0 Normal (applies to non-numeric resul ts) [facility] ([facility]) Harvey % 7.8 % 0.0-5.0 Above high normal [facility] ([facility]) Eos % 2.6 % 0.0-3.0 Normal (applies to non-numeric resul ts) [facility] ([facility]) Immature Granulocyte % 0.2 % 0-3.0 Normal (applies to non-n umeric results) [facility] ([facility]) Baso % 0.5 % 0.0-1.0 Normal (applies to non-numeric resul ts) [facility] ([facility]) Nucleated Red Blood Cell % 0.0 % 0-0 Normal (applies to n on-numeric results) [facility] ([facility]) Neutrophils # 3.1 10 1.5-8.5 Normal (applies to non-numeric re sults) [facility] ([facility]) Harvey # 0.5 10 0.0-0.8 Normal (applies to non-numeric resul ts) [facility] ([facility]) Eos # 0.2 10 0.0-0.5 Normal (applies to non-numeric resul ts) [facility] ([facility]) Lymph # 2.0 10 1.5-5.0 Normal (applies to non-numeric resul ts) [facility] ([facility]) Baso # 0.0 10 0.0-0.2 Normal (applies to non-numeric resul ts) [facility] ([facility]) ID Date Data Source [id number] 10/30/2020 09:45:00 AM EST [facility] ([facility]) Name Value Range Interpretation Code Description Data Shannan rce(s) Supporting Document(s) Glucose, Fasting 106 mg/dL 70-100 Above high normal [facility] ([facility]) Blood Urea Nitrogen 18 mg/dL 7-18 Normal (applies to non-nume german results) [facility] ([facility]) Glomerular Filtration Rate Laboratory test result Normal (applies to non- numeric results) [facility] ([facility]) <content>Units are mL/min/1.73 m2</content>
<content></content>
<content>Chronic Kidney Disease Staging per NKF:</content>
<content></content>
<content>Stage I & II GFR >=60 Normal to Mildly Decreased</content>
<content>Stage III GFR 30-59 Moderately Decreased</content>
<content>Stage IV GFR 15-29 Severely Decreased</content>
<content>Stage V GFR <15 Very Little GFR Left</content>
<content>ESRD GFR <15 on HOT WATER HEATER INSTALLER</content>
<content></content> Creatinine For GFR 0.94 mg/dL 0.55-1.30 Normal (applies to non -numeric results) [facility] ([facility]) Sodium Level 143 meq/L 136-145 Normal (applies to non-numeric res ults) [facility] ([facility]) Potassium Serum 4.2 meq/L 3.5-5.1 Normal (applies to non-numeric results) [facility] ([facility]) Chloride Level 106 meq/L 98-107 Normal (applies to non-numeric r esults) [facility] ([facility]) Carbon Dioxide Level 30 meq/L 21-32 Normal (applies to non-num bonnie results) [facility] ([facility]) Anion Gap 7 meq/L 8-16 Below low normal [facility] Calcium Level 9.6 mg/dL 8.8-10.2 Normal (applies to non-numeric re sults) [facility] ([facility]) Ast/Sgot 20 U/L 7-37 Normal (applies to non-numeric resul ts) [facility] ([facility]) Alt/SGPT 48 U/L 12-78 Normal (applies to non-numeric resul ts) [facility] ([facility]) Alkaline Phosphatase 68 U/L 45-117 Normal (applies to non-num bonnie results) [facility] ([facility]) Bilirubin,Total 0.3 mg/dL 0.2-1.0 Normal (applies to non-numeric results) [facility] ([facility]) Albumin 3.9 GM/DL 3.2-5.2 Normal (applies to non-numeric resul ts) [facility] ([facility]) Total Protein 7.2 GM/DL 6.4-8.2 Normal (applies to non-numeric re sults) [facility] ([facility]) Albumin/Globulin Ratio 1.2 1.2-2.2 Normal (applies to non-n umeric results) [facility] ([facility]) ID Date Data Source [id number] 10/30/2020 09:45:00 AM EST [facility] ([facility]) Name Value Range Interpretation Code Description Data Shannan rce(s) Supporting Document(s) Cholesterol Level 231 mg/dL Above high normal [facility] ([facility]) Triglycerides Level 261 mg/dL Above high normal [facility] ([facility]) LDL Cholesterol 125 mg/dL Above high normal [facility] ([facility]) HDL Cholesterol 54 mg/dL Normal (applies to non-numeric results) [facility] ([facility]) Non-HDL-C 177 mg/dL Normal (applies to non-numeric resul ts) [facility] ([facility]) Cholesterol Risk Ratio 4.277 Normal (applies to non-n umeric results) [facility] ([facility]) Procedure Social History Code Duration Value Status Description Data Source(s ) Smoking 10/03/2020 12:00:00 AM EST Patient has never smoked co mpleted Patient has never smoked [facility] ([facility]) Vital Signs ID Date Data Source UNK Name Value Range Interpretation Code Description Data Source(s) Royal body weight 130 [lb_av] 130 [lb_av] [facility] ([facility]) Oxygen saturation in Arterial blood by Pulse oximetry 97 % 97 % [facility] ([facility]) Body temperature 98.4 [degF] 98.4 [degF] [facility] ([facility]) Respiratory rate 14 /min 14 /min [facility] ( [facility]) Heart rate 88 /min 88 /min [facility] ([facility]) Body mass index (BMI) [Ratio] 31.0 kg/m2 31.0 k g/m2 [facility] ([facility]) Body weight 195.12 [lb_av] 195.12 [lb_av] [facility] ([facility]) Body height 66.5 [in_i] 66.5 [in_i] [facility] ([facility]) 5'6.50" Diastolic blood pressure 82 mm[Hg] 82 mm[Hg] [facility] ([facility]) Systolic blood pressure 128 mm[Hg] 128 mm[Hg] M [facility] ([facility]) Body surface area Derived from formula 2.04 m2 2.04 m2 [facility] ([facility] ) Body weight 89.926 kg 89.926 kg [facility] ([facility] ) Royal body weight 140 [lb_av] 140 [lb_av] [facility] Body mass index (BMI) [Ratio] 30.1 kg/m2 30.1 k g/m2 [facility] ([facility]) Body weight 198.25 [lb_av] 198.25 [lb_av] [facility] ([facility]) Body height 68 [in_i] 68 [in_i] [facility] ([facility]) 5'8" Diastolic blood pressure 88 mm[Hg] 88 mm[Hg] [facility] ([facility]) Systolic blood pressure 126 mm[Hg] 126 mm[Hg] M KATIA ([facility]) Royal body weight 130 [lb_av] 130 [lb_av] [facility] Oxygen saturation in Arterial blood by Pulse oximetry 98 % 98 % [facility] ([facility]) Body temperature 98.3 [degF] 98.3 [degF] [facility] ([facility]) Respiratory rate 18 /min 18 /min [facility] ( [facility]) Heart rate 80 /min 80 /min [facility] ([facility]) Body mass index (BMI) [Ratio] 31.3 kg/m2 31.3 k g/m2 [facility] ([facility]) Body weight 197.00 [lb_av] 197.00 [lb_av] [facility] Body height 66.5 [in_i] 66.5 [in_i] [facility] ([facility]) 5'6.50" Diastolic blood pressure 82 mm[Hg] 82 mm[Hg] [facility] ([facility]) Systolic blood pressure 124 mm[Hg] 124 mm[Hg] [facility] ([facility])
--- OUTSIDE RECORDS SUMMARY | 2020-11-14 10:01 | CCD | Continuity of Care Document ---
Author Author Linda WHITE D.O. Organization Unknown Address [address] [place] [address] Phone [phone] Care Team Providers Care Pattern Designer Name Role Phone Abril White D.O. AUTM [phone] Problems Active Problems Provider Date Adult health examination Abril White D.O. Onset: 0 03/04/2016 Elevated blood-pressure reading without diagnosis of h ypertension Abril Thomas D.O. Onset: 03/04/2016 Obesity Abril White D.O. Onset: 2015 Body mass index [BMI] 33.0-33.9, adult Abril White D.O. Onset: 03/04/2016 Essential hypertension Abrli White D.O. Onset: Screening mammography Abril White [...] once nightly at bedtime if needed istop: [id number] 30tabs G47.00 Abril Thomas D.O. 11/05/2017 Doxycycline [...] F O2 % BldC Oximetry 98 % [place] Body Weight 130 lb 11/05/2017 1:46pm BP Systolic 136 mmHg BP Diastolic 80 mmHg Height 66.5 inches 5'6.50" Weight 188.00 lb BMI (Body Mass Index) 29.9 kg/m2 Heart Rate 78 /min Respiratory Rate 16 /min Body Temperature 97.3 F O2 % BldC Oximetry 97 % [place] Body Weight 130 lb Results Description No Information Available Procedures Date Code Description Status 04/17/2016 49180351 Mammogram Completed Medical Devices Description No Information Available Encounters Type Date Location Provider Dx Diagnosis Office Visit 10/03/2020 1:30p Family Medicine [facility] Sotero Diaz.O. Z00.00 Encntr for general adult med ical exam w/o abnormal findings E78.00 Pure hypercholesterolemia, u nspecified Z88.2 Allergy status to sulfonamid es I10 Essential (primary) hyperten oni Z79.899 Other watermelon inspector (current) dr stephanie phelps E66.9 Obesity, unspecified [...] (primary) hypertension [place] Diaz.[place] 10/03/2020 Z79.899 Other correction (current) drug t herapy Sotero Diaz.[place]ondon 10/03/2020 [...] 1:30 pm - Abril White D.O. at [facility] Functional Status Description No Information Available Mental Status Description No Information Available Referrals Refer to Reason for Referral Status Appt Date Pierre Souza M.D. This is a 65 year old female who is due for screening colonoscopy. Please evaluate and treat. Created [address] [place] [address] [phone]
--- NOTE | 2020-11-14 11:33 | ROOR ---
Patient Name: Linda Radford Procedure Date: 11/14/2020 11:15 AM Date of : 1955 Age: 65 Room: [facility] Gender: Female Note Status: Finalized Procedure: Colonoscopy Indications: Screening for colorectal malignant neoplasm Providers: Pierre Souza Jr, MD Referring MD: Abril CHRISTENSEN DO Requesting Provider: Medicines: Propofol per Anesthesia Complications: No immediate complications. Procedure: Pre-Anesthesia Assessment: - Prior to the procedure, a History and Physical was performed, and patient medications and allergies were reviewed. The patient is competent. The risks and benefits of the procedure and the sedation options and risks were discussed with the patient. All questions were answered and informed consent was obtained. Patient identification and proposed procedure were verified by the physician and the nurse in the pre-procedure area and in the procedure room. Mental Status Examination: alert and oriented. Airway Examination: normal oropharyngeal airway and neck mobility. Respiratory Examination: clear to auscultation. CV Examination: normal. ASA Grade Assessment: II - A patient with mild systemic disease. After reviewing the risks and benefits, the patient was deemed in satisfactory condition to undergo the procedure. The anesthesia plan was to use moderate sedation / analgesia (conscious sedation). Immediately prior to administration of medications, the patient was re-assessed for adequacy to receive sedatives. The heart rate, respiratory rate, oxygen saturations, blood pressure, adequacy of pulmonary ventilation, and response to care were monitored throughout the procedure. The physical status of the patient was re-assessed after the procedure. The Colonoscope was introduced through the anus and advanced to the cecum, identified by appendiceal orifice and ileocecal valve. The colonoscopy was performed without difficulty. The patient tolerated the procedure well. The quality of the bowel preparation was adequate. Findings: The rectum, recto-sigmoid colon, descending colon, transverse colon, ascending colon, cecum, appendiceal orifice and ileocecal valve appeared normal. Multiple small-mouthed diverticula were found in the sigmoid colon. Impression: - The rectum, recto-sigmoid colon, descending colon, transverse colon, ascending colon, cecum, appendiceal orifice and ileocecal valve are normal. - Diverticulosis in the sigmoid colon. - No specimens collected. Recommendation: - Discharge patient to home (ambulatory). - Repeat colonoscopy in 10 years for screening purposes. Procedure Code(s): --- Professional --- 01054, Colonoscopy, flexible; diagnostic, including collection of specimen(s) by brushing or washing, when performed (separate procedure) Diagnosis Code(s): --- Professional --- Z12.11, Encounter for screening for malignant neoplasm of colon K57.30, Diverticulosis of large intestine without perforation or abscess without bleeding CPT copyright 2019 [employer]. All rights reserved. The codes documented in this report are preliminary and upon enrollment specialist review may be revised to meet current compliance requirements. Pierre Souza MD Pierre Souza Jr, MD 11/14/2020 11:33:52 AM Electronically signed by Pierre Souza Jr, MD Number of Addenda: 0 Note Initiated On: 11/14/2020 11:15 AM Estimated Blood Loss: Estimated blood loss: none.
[2020-11-14 11:53] VITALS: BP 117/69
== END 2020-11-14 12:46 | disposition home or self-care (01) ==
LOC: M OPP 09:54
PROVIDERS: ATTEND Surgery
DX: Z12.11 Encounter for screening for malignant neoplasm of colon (principal); K57.30 Diverticulosis of large intestine without perforation or abscess without bleeding; I10 Essential (primary) hypertension; G43.909 Migraine, unspecified, not intractable, without status migrainosus; Z88.2 Allergy status to sulfonamides; Z79.899 Other long term (current) drug therapy

== ENCOUNTER → 2020-11-28 | Outpatient (CLI) | payer BC ==
[~2020-11-28] MED LIST changes: -LIDOCAINE 2% 100MG/5ML SDV (FOR ANES.) As Ordered ONE; -NS 1,000 ML IV ONE; -propofoL 200 MG/20 ML VIAL As Ordered ONE
--- NOTE | 2020-11-28 12:32 | REPMRS ---
Patient History The patient states she has not had a clinical breast exam in over a year. Patient is postmenopausal. No known family history of cancer. Reductions of both breasts, 2000. Benign excisional biopsy of the right breast, 1985. Digital Woman Screen Mammo: November 28, 2020 - Exam #: [id number] Bilateral CC and MLO view(s) were taken. Technologist: Christy Bowers, Technologist Prior study comparison: July 01, 2018, bilateral digital mammo screening bilat, performed at [facility] [facility]. April 17, 2016, bilateral digital mammo screening bilat, performed at [facility]. FINDINGS: The breast tissue is almost entirely fat. The Volpara volumetric breast density category is: A. Multiple benign appearing well-circumscribed nodular densities are seen bilaterally unchanged. There has been no change in the appearance of the mammogram from the prior studies. There is no interval development of dominant mass, architectural distortion, or grouped microcalcification typical of malignancy. 3-D tomosynthesis shows no additional findings. Assessment: BI-RADS/ACR category 2 mammogram. Benign Findings. Recommendation Routine screening mammogram of both breasts in 1 year (for women over age 40). This patient's [facility] Lifetime Breast Cancer RIsk is estimated at 7.1 %. This mammogram was interpreted with the aid of an FDA-approved computer-aided dectection system. Electronically Signed By: Yayo Miller MD 11/28/20 [id number]
== END ==
LOC: M WHC 10:40
PROVIDERS: ATTEND Family Medicine
DX: Z12.31 Encounter for screening mammogram for malignant neoplasm of breast (principal)

== ENCOUNTER 2021-10-02 20:12 | Emergency (ER) | payer BC ==
[~2021-10-02] VITALS: Ht 170.2 cm; Wt 93.2 kg
[2021-10-02] MEDS ORDERED: ONDANSETRON 4MG/2ML VIAL IV ONE (21:15)
[2021-10-02] MEDS ORDERED: NS 1,000 ML IV SCH (21:15)
[2021-10-02] MEDS ORDERED: propofoL 200 MG/20 ML VIAL IV.PROC PRN (21:15)
[2021-10-02] MEDS ORDERED: KETAMINE HCL 200 MG/20 ML VIAL IV ONE (21:15)
[2021-10-02] MEDS ORDERED: MORPHINE 4 MG/ML 1ML VIAL/SYRINGE (J2270) IV PRN (21:25)
[2021-10-02 23:37] VITALS: O2SAT 99
[2021-10-03 00:17] VITALS: BP 135/68
== END 2021-10-03 00:20 | disposition home or self-care (01) ==
LOC: M ED 20:12
DX: S43.005A Unspecified dislocation of left shoulder joint, initial encounter (principal); W01.0XXA Fall on same level from slipping, tripping and stumbling without subsequent striking against object, initial encounter; Y92.018 Other place in single-family (private) house as the place of occurrence of the external cause; I10 Essential (primary) hypertension; Z79.899 Other long term (current) drug therapy; Z88.1 Allergy status to other antibiotic agents; Z88.2 Allergy status to sulfonamides
CPT/HCPCS: 23650; 73000; 73020; 73030; 93041; 96361; 96374; 99152; 99285; J2270; J2405

== ENCOUNTER → 2022-07-28 | Outpatient (CLI) | payer BC, MEDICARE | LOC: M WHC 12:32 | PROVIDERS: ATTEND Family Medicine | DX: Z12.31 Encounter for screening mammogram for malignant neoplasm of breast (principal) ==

== ENCOUNTER → 2023-11-08 | Outpatient (CLI) | payer MEDICARE | LOC: M WHC 14:57 | PROVIDERS: ATTEND Family Medicine | DX: Z12.31 Encounter for screening mammogram for malignant neoplasm of breast (principal) ==

== ENCOUNTER → 2023-11-16 | Outpatient (CLI) | payer MEDICARE | LOC: M WHC 14:39 | PROVIDERS: ATTEND Family Medicine | DX: N60.01 Solitary cyst of right breast (principal) ==

== ENCOUNTER → 2023-11-30 | Outpatient (REF) | payer MEDICARE ==
[2023-11-30 14:08] LABS: BASO # 0.1 10^3/uL (0.0-0.2); BASO % 0.8 % (0.0-1.0); EOS # 0.2 10^3/uL (0.0-0.5); EOS % 3.2 % (0.0-3.0); HEMATOCRIT 47.7 % (36.0-47.0); HEMOGLOBIN 15.5 g/dl (12.0-15.5); LYMPH # 2.6 10^3/uL (1.5-5.0); LYMPH % 40.4 % (24.0-44.0); MEAN CORPUSCULAR HEMOGLOBIN 30.8 pg (27.0-33.0); MEAN CORPUSCULAR HGB CONC 32.5 g/dl (32.0-36.5); MEAN CORPUSCULAR VOLUME 94.8 fl (80.0-96.0); MONO # 0.5 10^3/uL (0.0-0.8); MONO % 7.7 % (2.0-8.0); NEUTROPHILS # 3.1 10^3/uL (1.5-8.5); NEUTROPHILS % 47.6 % (36.0-66.0); PLATELET COUNT, AUTOMATED 253 10^3/uL (150-450); RED BLOOD COUNT 5.03 10^6/uL (4.00-5.40); WHITE BLOOD COUNT 6.5 10^3/uL (4.0-10.0)
[2023-11-30 14:14] LABS: ALKALINE PHOSPHATASE 64 U/L (46-116); ALT/SGPT 63 U/L (7.0-40); AST/SGOT 29 U/L (<34); BILIRUBIN,TOTAL 0.4 MG/DL (0.3-1.2); BLOOD UREA NITROGEN 20 MG/DL (9-23); CALCIUM LEVEL 9.1 MG/DL (8.3-10.6); CARBON DIOXIDE LEVEL 28 MMOL/L (20-31); CHLORIDE LEVEL 108 MMOL/L (98-107); CHOLESTEROL LEVEL 153 MG/DL (<200); CHOLESTEROL RISK RATIO 3.07 (<5); CREATININE FOR GFR 0.93 MG/DL (0.55-1.30); GLOMERULAR FILTRATION RATE > 60.0 (>45); GLUCOSE, FASTING 115 MG/DL (74-106); HDL CHOLESTEROL 49.8 MG/DL (>40); NON-HDL-C 103.2 MG/DL; POTASSIUM SERUM 4.5 MMOL/L (3.5-5.1); SODIUM LEVEL 141 MMOL/L (136-145); TOTAL PROTEIN 6.8 G/DL (5.7-8.2); TRIGLYCERIDES LEVEL 161 MG/DL (<150)
[2023-11-30 14:16] LABS: FREE T4 1.01 NG/DL (0.89-1.76); THYROID STIMULATING HORMONE 3.124 uIU/ML (0.55-4.78)
[2023-12-01 09:49] LABS: HEMOGLOBIN A1c 5.8 % (4.0-6.0)
== END ==
LOC: M LABDRWAD 13:51
PROVIDERS: ATTEND Family Medicine
DX: I10 Essential (primary) hypertension (principal); E78.2 Mixed hyperlipidemia; R73.01 Impaired fasting glucose

== ENCOUNTER → 2024-05-29 | Outpatient (REF) | payer MEDICARE ==
[2024-05-29 13:30] LABS: ALBUMIN 4.1 G/DL (3.2-5.2); ALKALINE PHOSPHATASE 60 U/L (46-116); ALT/SGPT 32 U/L (7.0-40); AST/SGOT 20 U/L (<34); BILIRUBIN,TOTAL 0.5 MG/DL (0.3-1.2); BLOOD UREA NITROGEN 17 MG/DL (9-23); CALCIUM LEVEL 9.6 MG/DL (8.3-10.6); CARBON DIOXIDE LEVEL 30 MMOL/L (20-31); CHLORIDE LEVEL 107 MMOL/L (98-107); CREATININE FOR GFR 0.91 MG/DL (0.55-1.30); GLOMERULAR FILTRATION RATE > 60.0 (>45); GLUCOSE, FASTING 95 MG/DL (74-106); SODIUM LEVEL 140 MMOL/L (136-145); TOTAL PROTEIN 6.9 G/DL (5.7-8.2)
[2024-05-29 13:42] LABS: HEMOGLOBIN A1c 5.2 % (4.0-6.0)
== END ==
LOC: M LABDRWAD 12:50
PROVIDERS: ATTEND Family Medicine
DX: R73.03 Prediabetes (principal)

== ENCOUNTER → 2024-06-02 | Outpatient (REF) | payer MEDICARE ==
[2024-06-02 14:23] LABS: HDL CHOLESTEROL 47.8 MG/DL (>40); LDL CHOLESTEROL 154.4 MG/DL (<100); NON-HDL-C 191.2 MG/DL
== END ==
LOC: M LABDRWAD 13:17
PROVIDERS: ATTEND Family Medicine
DX: E78.2 Mixed hyperlipidemia (principal)

== ENCOUNTER → 2024-06-29 | Outpatient (CLI) | payer MEDICARE | LOC: M WHC 14:34 | PROVIDERS: ATTEND Family Medicine | DX: M85.89 Other specified disorders of bone density and structure, multiple sites (principal) ==

== ENCOUNTER → 2024-07-12 | Outpatient (CLI) | payer MEDICARE | LOC: M WHC 12:29 | PROVIDERS: ATTEND Family Medicine | DX: R92.8 Other abnormal and inconclusive findings on diagnostic imaging of breast (principal); N60.11 Diffuse cystic mastopathy of right breast ==

== ENCOUNTER → 2024-11-22 | Outpatient (CLI) | payer MEDICARE | LOC: M WHC 09:54 | PROVIDERS: ATTEND Family Medicine | DX: R92.8 Other abnormal and inconclusive findings on diagnostic imaging of breast (principal); R92.323 Mammographic fibroglandular density, bilateral breasts | CPT/HCPCS: 77066; G0279 ==

== ENCOUNTER → 2024-11-24 | Outpatient (REF) | payer MEDICARE ==
[2024-11-24 13:56] LABS: ALBUMIN 3.9 G/DL (3.2-5.2); ALKALINE PHOSPHATASE 54 U/L (35-104); ALT/SGPT 25 U/L (7.0-40); AST/SGOT 19 U/L (<34); BILIRUBIN,TOTAL 0.4 MG/DL (0.3-1.2); BLOOD UREA NITROGEN 17 MG/DL (9-23); CALCIUM LEVEL 9.3 MG/DL (8.3-10.6); CARBON DIOXIDE LEVEL 29 MMOL/L (20-31); CHLORIDE LEVEL 106 MMOL/L (98-107); CHOLESTEROL LEVEL 199 MG/DL (<200); CHOLESTEROL RISK RATIO 4.32 (<5); CREATININE FOR GFR 0.75 MG/DL (0.55-1.30); GLOMERULAR FILTRATION RATE > 60.0 (>45); GLUCOSE, FASTING 98 MG/DL (74-106); LDL CHOLESTEROL 92.6 MG/DL (<100); SODIUM LEVEL 142 MMOL/L (136-145); TOTAL PROTEIN 6.9 G/DL (5.7-8.2); TRIGLYCERIDES LEVEL 302 MG/DL (<150)
[2024-11-24 13:59] LABS: FREE T4 1.09 NG/DL (0.89-1.76); THYROID STIMULATING HORMONE 2.428 uIU/ML (0.55-4.78)
[2024-11-24 14:01] LABS: BASO % 0.7 % (0.0-1.0); EOS # 0.1 10^3/uL (0.0-0.5); EOS % 1.7 % (0.0-3.0); HEMATOCRIT 44.2 % (36.0-47.0); HEMOGLOBIN 14.6 g/dl (12.0-15.5); LYMPH # 2.5 10^3/uL (1.5-5.0); MEAN CORPUSCULAR HEMOGLOBIN 31.5 pg (27.0-33.0); MEAN CORPUSCULAR VOLUME 95.3 fl (80.0-96.0); MONO # 0.4 10^3/uL (0.0-0.8); MONO % 7.4 % (2.0-8.0); NEUTROPHILS # 2.8 10^3/uL (1.5-8.5); NEUTROPHILS % 46.9 % (36.0-66.0); PLATELET COUNT, AUTOMATED 257 10^3/uL (150-450); RED BLOOD COUNT 4.64 10^6/uL (4.00-5.40); WHITE BLOOD COUNT 5.9 10^3/uL (4.0-10.0)
== END ==
LOC: M LABDRWAD 13:04 → M LAB REF 13:04
PROVIDERS: ATTEND Family Medicine
DX: I10 Essential (primary) hypertension (principal); E78.2 Mixed hyperlipidemia; R73.03 Prediabetes

== ENCOUNTER → 2024-12-12 | Outpatient (REF) | payer MEDICARE ==
[2024-12-12 15:40] LABS: CHOLESTEROL RISK RATIO 4.51 (<5); HDL CHOLESTEROL 53.6 MG/DL (>40); LDL CHOLESTEROL 141.4 MG/DL (<100); NON-HDL-C 188.4 MG/DL
== END ==
LOC: M LABDRWAD 13:00
PROVIDERS: ATTEND Nurse Practitioner Adult Health
DX: E78.2 Mixed hyperlipidemia (principal)

== ENCOUNTER → 2025-06-11 | Outpatient (CLI) | payer MEDICARE ==
[~2025-06-11] MED LIST changes: +ZOLP10TA11 PO; -ZOLP10TA2 PO
[2025-06-11 13:59] LABS: BASO # 0.0 10^3/uL (0.0-0.2); BASO % 0.5 % (0.0-1.0); EOS # 0.2 10^3/uL (0.0-0.5); EOS % 2.6 % (0.0-3.0); LYMPH # 2.6 10^3/uL (1.5-5.0); LYMPH % 46.3 % (24.0-44.0); MONO # 0.5 10^3/uL (0.0-0.8); MONO % 8.9 % (2.0-8.0); NEUTROPHILS # 2.4 10^3/uL (1.5-8.5); NEUTROPHILS % 41.5 % (36.0-66.0); PLATELET COUNT, AUTOMATED 243 10^3/uL (150-450)
[2025-06-11 14:09] LABS: ALT/SGPT 21.0 U/L (7.0-40); AST/SGOT 20.0 U/L (<34); CALCIUM LEVEL 9.6 MG/DL (8.3-10.6); CARBON DIOXIDE LEVEL 28.0 MMOL/L (20-31); CHLORIDE LEVEL 104.0 MMOL/L (98-107); CHOLESTEROL LEVEL 278.0 MG/DL (<200); CHOLESTEROL RISK RATIO 3.53 (<5); CREATININE FOR GFR 0.88 MG/DL (0.55-1.30); GLOMERULAR FILTRATION RATE 71.5 (>45); LDL CHOLESTEROL 171.9 MG/DL (<100); NON-HDL-C 199.3 MG/DL; POTASSIUM SERUM 4.8 MMOL/L (3.5-5.1); SODIUM LEVEL 142.0 MMOL/L (136-145); TOTAL 25(OH) VITAMIN D 48.5 NG/ML (20.0-100.0); TRIGLYCERIDES LEVEL 137.0 MG/DL (<150)
[2025-06-11 14:13] LABS: ESTIMATED AVERAGE GLUCOSE 114.0 MG/DL (60-110)
== END ==
LOC: M LABDRWAD 08:52
PROVIDERS: ATTEND Nurse Practitioner Adult Health
DX: E78.2 Mixed hyperlipidemia (principal); I10 Essential (primary) hypertension; R73.03 Prediabetes; M85.80 Other specified disorders of bone density and structure, unspecified site